=== PATIENT | female | born 1990 | race African-American/Black ===

== ENCOUNTER 2024-07-20 11:50 | Emergency (ER) | payer OTHER, SELFPAY ==
--- NOTE | 2024-07-20 12:50 | ER ---
Nurse's Notes [facility] Name: Ni Zacarias Age: 34 yrs Sex: Female : 1990 Arrival Date: 07/20/2024 Time: 11:50 Bed IW5 Private MD: Diagnosis: Streptococcal pharyngitis Presentation: 07/20 12:43 Chief complaint: Patient states: sore throat that began wednesday. Coronavirus screen: ss Client denies travel out of the [place] in the last 14 days. Ebola Screen: Patient denies exposure to infectious person. Patient denies travel to an Ebola-affected area in the 21 days before illness onset. Initial Sepsis Screen: Does the patient meet any 2 criteria? No. Patient's initial sepsis screen is negative. Does the patient have a suspected source of infection? No. Patient's initial sepsis screen is negative. Risk Assessment: Do you want to hurt yourself or someone else? Patient reports no desire to harm self or others. Onset of symptoms was July 16, 2024. 12:43 Acuity: RENATO 4 ss 12:43 Method Of Arrival: Ambulatory Historical: - Allergies: 12:44 PENICILLINS; ss - Infectious Disease History:: Denies. - Social history:: Smoking status: Patient/guardian denies using tobacco, Stopped _ months ago .25. Vital Signs: 12:43 BP 161 / 122; Pulse 110; Resp 18; Temp 98.7; Pulse Ox 98% on R/A; Weight 113.4 kg; ss Height 5 ft. 6 in. ; 12:43 Body Mass Index 40.35 (113.40 kg, 167.64 cm) ED Course: 11:53 Patient arrived in ED. im 12:26 Alisa Clement MD is Attending Physician. sw6 12:44 Triage completed. ss 12:44 Arm band placed on right wrist. ss 14:07 No provider procedures requiring assistance completed. Patient did not have IV access ss during this emergency room visit. Administered Medications: 14:04 Not Given (Other Intervention Used): Decadron - [id number] mg IVP once; please ss give the IV formula orally 14:04 Drug: Dexamethasone IM 10 mg IM once Route: IM; Site: right deltoid; ss 14:04 Follow up: Response: Medication Administered at Departure Outcome: 12:50 Discharge ordered by . sw6 14:07 Discharged to home ambulatory, 14:07 Condition: good 14:07 Discharge instructions given to patient, Instructed on discharge instructions, follow up and referral plans. medication usage, Demonstrated understanding of instructions, follow-up care, medications, Prescriptions given X 1, 14:07 Patient left the ED. Signatures: Nereida Naidu RN RN Sayda Child Sandra, MD MD sw6
--- NOTE | 2024-07-20 12:50 | EDPHYS ---
Physician Documentation [facility] Name: Ni Zacarias Age: 34 yrs Sex: Female : 1990 Arrival Date: 07/20/2024 Time: 11:50 Bed IW5 Private MD: ED Physician Alisa Clement HPI: 07/20 12:47 This 34 yrs old Black Female presents to ER via Ambulatory with complaints of Sore sw6 Throat. 12:47 The patient presents with sore throat. The patient presents from home for evaluation sw6 for sore throat since Wednesday. She also complains of fever. Today is . No cough. No congestion. No sick contacts. She quit smoking about 1 week ago. No history of diabetes. No medication taken prior to arrival. Here for evaluation.. Historical: - Allergies: 12:44 PENICILLINS; ss - Infectious Disease History:: Denies. - Social history:: Smoking status: Patient/guardian denies using tobacco, Stopped _ months ago .25. ROS: 12:47 Cardiovascular: Negative for chest pain, palpitations, and edema, Respiratory: Negative sw6 for shortness of breath, cough, wheezing, and pleuritic chest pain, Abdomen/GI: Negative for abdominal pain, nausea, vomiting, diarrhea, and constipation, 12:47 Constitutional: Positive for fever, 12:47 ENT: Positive for sore throat, 12:47 All other systems are negative, Exam: 12:47 Constitutional: This is a well developed, well nourished patient who is awake, alert, sw6 and in no acute distress. Chest/axilla: Normal chest wall appearance and motion. Nontender with no deformity. No lesions are appreciated. Cardiovascular: Regular rate and rhythm with a normal S1 and S2. No gallops, murmurs, or rubs. Normal PMI, no JVD. No pulse deficits. Respiratory: Lungs have equal breath sounds bilaterally, clear to auscultation and percussion. No rales, rhonchi or wheezes noted. No increased work of breathing, no retractions or nasal flaring. 12:47 ENT: No stridor. No hot potato voice. She is able to control secretions out difficulty. Her tonsils are swollen and erythematous bilaterally with white exudates visible. Her uvula is midline. No trismus.. Vital Signs: 12:43 BP 161 / 122; Pulse 110; Resp 18; Temp 98.7; Pulse Ox 98% on R/A; Weight 113.4 kg; ss Height 5 ft. 6 in. ; 12:43 Body Mass Index 40.35 (113.40 kg, 167.64 cm) MDM: 12:26 Medical Screening Exam initiated 12:47 Differential diagnosis: group A strep tonsillitis, pharyngitis, viral syndrome. Data 6 reviewed: vital signs, nurses notes. ED course: The patient has clinical signs and symptoms consistent with strep pharyngitis. Will treat with antibiotics. She remained stable here in the ER and is okay for discharge home with PCP follow-up.. 07/20 12:42 Order name: Group A Streptococcus Rapid; Complete Time: 13:59 [facility] 07/20 13:59 Interpretation: Within normal limits: GP A STREP SC Negative. 6 07/20 13:21 Order name: Throat Culture EDMS Administered Medications: 14:04 Not Given (Other Intervention Used): Decadron - [id number] mg IVP once; please ss give the IV formula orally 14:04 Drug: Dexamethasone IM 10 mg IM once Route: IM; Site: right deltoid; 14:04 Follow up: Response: Medication Administered at Departure Disposition Summary: 07/20/24 12:50 Discharge Ordered Notes: Location: Home 6 Problem: new 6 Symptoms: are unchanged sw6 Condition: Stable sw6 Diagnosis - Streptococcal pharyngitis 6 Discharge Instructions: - Discharge Summary Sheet sw6 - Strep Throat, Adult sw6 Forms: - Medication Reconciliation Form 6 - Antibiotic Education 6 - Prescription Opioid Use 6 - Patient Portal Instructions 6 - Leadership Thank You Letter 6 Prescriptions: - azithromycin 500 mg Oral tablet - take 1 tablet ORAL route daily for 5 days; 5 tablet; Refills: 0, Product 6 Selection Permitted Signatures: Dispatcher [employer] EDNereida Shaw RN RN Alisa Clement MD MD
[2024-07-20] MEDS ORDERED: dexAMETHasone 10 MG/ML VIAL ONE (13:59)
[2024-07-20 14:15] VITALS: BP 161/122; TEMP 98.7; O2SAT 98
== END 2024-07-20 14:07 | disposition home or self-care (01) ==
LOC: ER 11:50
DX: J02.0 Streptococcal pharyngitis (principal)
CPT/HCPCS: 36415; 87070; 96372; 99284; J1100

== ENCOUNTER 2025-01-22 12:22 | Emergency (ER) | payer SELFPAY ==
--- NOTE | 2025-01-22 13:54 | RAD REPORT ---
EXAMINATION: Head Brain Wo Cont CLINICAL INDICATION: Female, 34 years old.HEADACHE TECHNIQUE: Axial CT images from the skull base to the vertex without intravenous contrast. Coronal an d sagittal reformatted images were created from the data set. One or more of the following dose reduction techniques were used: Automated exposure control, adjustment of the mA and/or kV according to patient size, and/or iterative reconstruction. Unless otherwise specified, incidental findings do not require dedicated imaging follow-up. [id number]. COMPARISON: No prior exams FINDINGS: INTRACRANIAL: No acute intracranial hemorrhage. No acute large vascular territory infarct. No hydro cephalus. No mass effect or midline shift. No significant white matter disease. VASCULATURE: No visualized abnormalities in the arteries or dural venous sinuses. SCALP/SKULL: No calvarial fracture identified. No acute soft tissue abnormality. SINUSES: The visualized paranasal sinuses are mostly clear. No significant mastoid fluid. IMPRESSION: No acute intracranial abnormality.
[2025-01-22 13:55] LABS: Absolute Lymphocytes (CBC) 2.5 K/uL (0.7-4.9); Hematocrit 39.4 % (36.0-45.0); Hemoglobin 13.0 g/dL (12.0-15.0); MCH 28.5 pg (27.0-35.0); MCHC 32.9 g/dL (32.0-36.0); MCV 86.6 fL (80-100); MPV 6.7 fL (7.6-11.3); Nucleated RBC Absolute Count 0.0 (0-0); Nucleated Red Blood Cells % 0.0 % (0-0); RBC Red Blood Cell Count 4.55 M/uL (3.86-4.86); White Blood Count 9.00 thou/uL (4.3-10.9)
--- NOTE | 2025-01-22 13:55 | RAD REPORT ---
EXAMINATION: Neck Angio CLINICAL INDICATION: Female, 34 years old. HEADACHE TECHNIQUE: Axial CT images were obtained from the aortic arch to the skull base after intravenous con trast utilizing angiographic protocol with 3D post-processing (maximum intensity projection images, volume rendered images and/or shaded surface rendered images). One or more of the following dose redu ction techniques were used: Automated exposure control, adjustment of the mA and/or kV according to patient size, and/or iterative reconstruction. Unless otherwise specified, incidental findings do not require dedicated imaging follow-up. [id number]. NASCET criteria used. Mild 0-49% stenosis Moderate 50-69% stenosis Severe 70-99% stenosis COMPARISON: No prior exam. FINDINGS: AORTA: Normal RIGHT: - CCA: No flow limiting stenosis (>= 50%). No dissection. - ICA: No flow limiting stenosis (>= 50%). No dissection. - ECA: No flow limiting stenosis (>= 50%). No dissection. LEFT: - CCA: No flow limiting stenosis (>= 50%). No dissection. - ICA: No flow limiting stenosis (>= 50%). No dissection. - ECA: No flow limiting stenosis (>= 50%). No dissection. VERTEBRAL: Patent SOFT TISSUE: No significant neck soft tissue abnormalities. The visualized lung apices are clear. 3D images confirm these findings. IMPRESSION: No arterial dissection or stenosis identified within the neck.
--- NOTE | 2025-01-22 13:56 | RAD REPORT ---
EXAMINATION: Head angio CLINICAL INDICATION: Female, 34 years old. HEADACHE TECHNIQUE: Axial CT images were obtained through the head after intravenous contrast utilizing angiog raphic protocol with 3D post-processing (maximum intensity projection images, volume rendered images and/or shaded surface rendered images). One or more of the following dose reduction technique s were used: Automated exposure control, adjustment of the mA and/or kV according to patient size, and/or iterative reconstruction. Unless otherwise specified, incidental findings do not require dedic ated imaging follow-up. COMPARISON: No prior exam. FINDINGS: RIGHT: ICA: No aneurysm, stenosis, or occlusion. JASS: No aneurysm, stenosis, or occlusion. MCA: No aneurysm, stenosis, or occlusion. MACHINE IRONER: No aneurysm, stenosis, or occlusion. origin of the right MACHINE IRONER. LEFT: ICA: No aneurysm, stenosis, or occlusion. JASS: No aneurysm, stenosis, or occlusion. MCA: No aneurysm, stenosis, or occlusion. MACHINE IRONER: No aneurysm, stenosis, or occlusion. Vertebrobasilar: The vertebral arteries are patent. The basilar artery is normal in appearance. 3D images confirm these findings. IMPRESSION: No occlusion, aneurysm, or hemodynamically significant stenosis identified.
[2025-01-22 14:10] LABS: Anion Gap 7.1 mEq/L (5.0-15.0); BUN Blood Urea Nitrogen 10.0 mg/dL (7-18); Glucose Level 77.0 mg/dL (74-106); Potassium 4.1 mEq/L (3.5-5.1)
--- NOTE | 2025-01-22 14:32 | EDPHYS ---
Physician Documentation [facility] Name: Ni Zacarias Age: 34 yrs Sex: Female : 1990 Arrival Date: 01/22/2025 Time: 12:22 Bed DX3 Private MD: ED Physician Troy Garza HPI: 01/22 16:18 This 34 yrs old Black Female presents to ER via Ambulatory with complaints of Head Pain.sb4 16:17 Patient reports intermittent occipital headache over the past 2 months, worse when sb4 engaging in sexual activity. Denies any dizziness, blurry vision, shortness of breath, fever, chills, nausea, vomiting. States that she was experiencing the pain this morning and had to pull her car over. States her pain is since resolved but wanted to have it evaluated. Denies any medical history. 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 - Infectious Disease History:: Denies. - Social history:: Smoking status: Patient denies any tobacco usage or history of. ROS: 16:17 Constitutional: Negative for fever, chills, and weight loss, sb4 16:17 Neuro: Positive for headache, 16:17 All other systems are negative, Exam: 16:17 Constitutional: This is a well developed, well nourished patient who is awake, alert, sb4 and in no acute distress. Head/Face: Normocephalic, atraumatic. Eyes: Extra-ocular motions intact. Periorbital areas with no swelling, redness, or edema. ENT: Mucous membranes moist. Cardiovascular: Regular rate and rhythm with a normal S1 and S2. Respiratory: No increased work of breathing, no retractions or nasal flaring. Abdomen/GI: Soft, non-tender, no distension. Skin: Warm, dry with normal turgor. Normal color with no rashes, no lesions, and no evidence of cellulitis. MS/ Extremity: Pulses equal, no cyanosis. Neurovascular intact. Full, normal range of motion. Neuro: Awake and alert, GCS 15, oriented to person, place, time, and situation. Motor strength 5/5 in all extremities. Sensory grossly intact. Vital Signs: 13:14 BP 142 / 91; Pulse 79; Resp 18; Temp 98.2; Pulse Ox 100% ; Weight 117.93 kg; Height 5 me1 ft. 6 in. ; Pain 0/10; 13:14 Body Mass Index 41.96 (117.93 kg, 167.64 cm) me1 13:14 Pain Scale: Adult me1 MDM: 12:33 Medical Screening Exam initiated sb4 16:17 Differential diagnosis: Hypertensive headache, lab abnormality, anxiety, migraine, sb4 intracranial hemorrhage, aneurysm. Data reviewed: vital signs, nurses notes, lab test result(s), radiologic studies, and as a result, I will discharge patient. Counseling: I had a detailed discussion with the patient and/or guardian regarding the historical points, exam findings, and any diagnostic results supporting the discharge/admit diagnosis, the presence of at least one elevated blood pressure reading (>120/80) during this emergency department visit, lab results, radiology results, the need for outpatient follow up, for definitive care, to return to the emergency department if symptoms worsen or persist or if there are any questions or concerns that arise at home. 01/22 13:17 Order name: CBC with Diff; Complete Time: 14:01 sb4 01/22 13:17 Order name: BMP; Complete Time: 14:11 sb4 01/22 13:17 Order name: Test, Serum; Complete Time: 14:17 sb4 01/22 13:17 Order name: Head Brain Wo Cont CT; Complete Time: 13:56 sb4 01/22 13:17 Order name: CT Head Angio; Complete Time: 13:57 sb4 01/22 13:17 Order name: CT Neck Angio; Complete Time: 13:56 sb4 01/22 13:17 Order name: IV Start; Complete Time: 13:59 sb4 Administered Medications: No medications were administered Disposition: 18:15 Co-signature as Attending Physician, Troy Garza MD I reviewed the patient's care rn provided by the Advanced Practice Provider and agree with the diagnosis and treatment plan. Disposition Summary: 01/22/25 14:32 Discharge Ordered Notes: Location: Home sb4 Problem: an ongoing problem sb4 Symptoms: have improved sb4 Condition: Stable sb4 Diagnosis - Episodic headache sb4 - Elevated blood-pressure reading, without diagnosis of hypertension sb4 Followup: sb4 - With: Morales Eisenberg MD - When: As needed - Reason: Recheck today's complaints, Re-evaluation by your physician Discharge Instructions: - Discharge Summary Sheet sb4 - How to Take Your Blood Pressure, [id number] sb4 - General Headache Without Cause, [id number] sb4 - Form - Blood Pressure Record Sheet sb4 Forms: - Work release form sb4 - Patient Portal Instructions sb4 - Leadership Thank You Letter sb4 Signatures: Dispatcher [employer] Troy Herndon MD MD rn Brown, Sophia, PA-C PAJuvenal sb4 Stacey Hopper RN RN me1
--- NOTE | 2025-01-22 14:32 | ER ---
Nurse's Notes [facility] Name: Ni Zacarias Age: 34 yrs Sex: Female : 1990 Arrival Date: 01/22/2025 Time: 12:22 Bed DX3 Private MD: Diagnosis: Episodic headache;Elevated blood-pressure reading, without diagnosis of hypertension Presentation: 01/22 13:14 Chief complaint: Patient states: intermittent headaches to back of her head, me1 "pressure". No pain at this time but was severe this morning. Coronavirus screen: Vaccine status: Patient reports being unvaccinated. Ebola Screen: No symptoms or risks identified at this time. Initial Sepsis Screen: Does the patient meet any 2 criteria? No. Patient's initial sepsis screen is negative. Does the patient have a suspected source of infection? No. Patient's initial sepsis screen is negative. Risk Assessment: Do you want to hurt yourself or someone else? Patient reports no desire to harm self or others. Onset of symptoms is unknown. 13:14 Method Of Arrival: Ambulatory nc1 13:14 Acuity: RENATO 3 me1 Triage Assessment: 13:16 General: Appears comfortable, well groomed, well developed, well nourished, Behavior is me1 calm, cooperative, appropriate for age. Pain: Complains of pain in back of head Pain does not radiate. Pain currently is 0 out of 10 on a pain scale. at worst was 10 out of 10 on a pain scale. Quality of pain is described as pressure, Pain began suddenly, Is intermittent. EENT: No signs and/or symptoms were reported regarding the EENT system. Neuro: Level of Consciousness is awake, alert, obeys commands, Oriented to person, place, time, situation, Appropriate for age. Cardiovascular: Patient's skin is warm and dry. Respiratory: Airway is patent Respiratory effort is even, unlabored, Respiratory pattern is regular, symmetrical. GI: No signs and/or symptoms were reported involving the gastrointestinal system. : No signs and/or symptoms were reported regarding the genitourinary system. Derm: Skin is intact, is healthy with good turgor, Skin is normal. Musculoskeletal: Circulation, motion, and sensation intact. Range of motion:. 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 - Infectious Disease History:: Denies. - Social history:: Smoking status: Patient denies any tobacco usage or history of. Vital Signs: 13:14 BP 142 / 91; Pulse 79; Resp 18; Temp 98.2; Pulse Ox 100% ; Weight 117.93 kg; Height 5 me1 ft. 6 in. ; Pain 0/10; 13:14 Body Mass Index 41.96 (117.93 kg, 167.64 cm) me1 13:14 Pain Scale: Adult nc1 ED Course: 12:26 Patient arrived in ED. cj3 12:32 Marichuy Boyd PA-C is PHCP. sb4 12:32 Troy Garza MD is Attending Physician. sb4 13:16 Triage completed. me1 13:17 Arm band placed on Patient placed in waiting room. me1 13:43 Head Brain Wo Cont CT In Process Unspecified. EDMS 13:44 CT Head Angio In Process Unspecified. EDMS 13:44 CT Neck Angio In Process Unspecified. EDMS 13:46 CT completed. Patient tolerated procedure well. Note: 20g to rt ac, labs collected and sj sent by Myrtle in [place].. Patient moved back from CT. 14:32 Morales Eisenberg MD is Referral Physician. sb4 15:06 Stacey Hopper, RN is Primary Nurse. me1 Administered Medications: No medications were administered Outcome: 14:32 Discharge ordered by . sb4 15:09 Patient left the ED. me1 Signatures: Dispatcher [employer] Myrtle Seay Sophia, PA-C PA-C sb4 Stacey Hopper, RN RN me1 Caitlyn Retana cj3
[2025-01-22 16:09] VITALS: BP 142/91; TEMP 98.2; O2SAT 100
== END 2025-01-22 15:09 | disposition home or self-care (01) ==
LOC: ER 12:22
DX: R51.9 Headache, unspecified (principal); R03.0 Elevated blood-pressure reading, without diagnosis of hypertension; Z88.0 Allergy status to penicillin
CPT/HCPCS: 36415; 70450; 70496; 70498; 80048; 84703; 85025; 99283; Q9967